=== PATIENT | female | born 1935 | race Caucasian/White ===

== ENCOUNTER 2017-11-24 11:07 | Inpatient (IN) | payer OTHER ==
[~2017-11-24] VITALS: Ht 154.9 cm; Wt 76.4 kg
[2017-11-24 11:56] LABS: BASOPHIL (%) 0.5 % (0-1); EOSINOPHIL (%) 2.5 % (0-5); EOSINOPHIL COUNT 0.1 K/uL (0-0.3); HEMATOCRIT 25.6 % (36.0-46.0); HEMOGLOBIN 7.9 G/DL (11.9-15.5); IMMATURE GRANULOCYTE (%) 1.6 % (0.0-0.7); LYMPHOCYTE (%) 28.3 % (15-42); LYMPHOCYTE COUNT 1.6 K/uL (1.0-2.8); MCH 30.4 PG (29.0-34.0); MCHC 30.9 G/DL (30.0-36.0); MCV 98.5 FL (83-99); MONOCYTE (%) 16.3 % (3-12); MONOCYTE COUNT 0.9 K/uL (0-0.8); NEUTROPHIL (%) 50.8 % (45-76); NEUTROPHIL COUNT 2.8 K/uL (1.8-6.4); PLATELET COUNT 301 K/uL (156-360); RBC DIS.WIDTH-SD 53.8 % (39-53); WHITE BLOOD COUNT 5.6 K/uL (4.1-10.2)
[2017-11-24 12:01] LABS: INTER. NORMALIZED RATIO 2.7
[2017-11-24 12:04] LABS: PTT 39.6 SEC (25-37)
[2017-11-24 12:05] LABS: ALBUMIN 2.8 g/dL (3.2-4.8); CHLORIDE 103 mEq/L (99-109); POTASSIUM 3.7 mEq/L (3.7-5.4); SODIUM 144 mEq/L (136-147)
[2017-11-24 12:06] LABS: MAGNESIUM 1.8 mg/dL (1.3-2.7)
[2017-11-24 12:08] LABS: GLUCOSE 124 mg/dL (70-99); TOTAL PROTEIN 5.9 g/dL (6.4-8.3)
[2017-11-24 12:10] LABS: TOTAL BILIRUBIN 0.8 mg/dL (0.0-1.0)
[2017-11-24 12:11] LABS: ALKALINE PHOSPHATASE 81 IU/L (3-129); CREATININE 1.2 mg/dL (0.6-1.3); GFR ESTIMATE (CALCULATED) 46 mL/min/
[2017-11-24 12:12] LABS: UREA NITROGEN (BUN) 18 mg/dL (9-23)
[2017-11-24 12:13] LABS: AST (GOT) 14 IU/L (2-34)
[2017-11-24 12:14] LABS: ALT (GPT) 9 IU/L (3-49)
[2017-11-24 12:17] LABS: TROP-I INTERPRETATION NEGATIVE; TROPONIN-I 0.06 ng/mL (0.0-0.30)
[2017-11-24 13:11] LABS: APPEARANCE CLEAR ((CLEAR)); BILIRUBIN NEGATIVE; BLOOD SMALL; COLOR STRAW ((YELLOW)); GLUCOSE (STRIP) NEGATIVE; KETONES NEGATIVE; LEUKOCYTES NEGATIVE; NITRITE NEGATIVE; PROTEIN (STRIP) NEGATIVE; SPECIFIC GRAVITY 1.008 (1.000-1.030); UROBILINOGEN 0.2 MG/DL (0.2-1.0)
[2017-11-24 13:13] LABS: BACTERIA RARE /HPF; EPITHELIAL CELLS RARE /HPF; MUCUS TRACE /LPF; RED BLOOD CELLS 0-5 /HPF (0-5); UCUL ADDED? NO; WHITE BLOOD CELLS 0-5 /HPF (0-5)
[2017-11-24 13:28] LABS: THYROTROPIN (TSH) 1.5 MIU/L (0.4-5.5)
[2017-11-24] MEDS ORDERED: BUMEX1 MG PO (15:51)
[2017-11-24] MEDS ORDERED: CALCITRIOL0.25 MCG PO (15:51)
[2017-11-24] MEDS ORDERED: METOPROLOL SUCC25 MG PO (15:51)
[2017-11-24] MEDS ORDERED: ZOLOFT50 MG PO (15:51)
[2017-11-24] MEDS ORDERED: WARFARIN SODIUM5 MG PO (15:52)
[2017-11-24] MEDS ORDERED: PRAVASTATIN SOD10 MG PO (15:57)
[2017-11-24 17:17] LABS: TROP-I INTERPRETATION NEGATIVE; TROPONIN-I 0.06 ng/mL (0.0-0.30)
[2017-11-24 17:22] VITALS: BP 136/94
[2017-11-24 20:00] VITALS: BP 141/75
[2017-11-24 23:38] VITALS: BP 122/67
[2017-11-25 03:49] VITALS: BP 116/55
[2017-11-25 06:18] LABS: HEMATOCRIT 27.7 % (36.0-46.0); HEMOGLOBIN 8.4 G/DL (11.9-15.5); MCH 29.9 PG (29.0-34.0); MCHC 30.3 G/DL (30.0-36.0); MCV 98.6 FL (83-99); PLATELET COUNT 312 K/uL (156-360); RBC DIS.WIDTH-SD 54.4 % (39-53); RED BLOOD COUNT 2.81 M/uL (3.80-5.20); WHITE BLOOD COUNT 4.1 K/uL (4.1-10.2)
[2017-11-25 06:34] LABS: INTER. NORMALIZED RATIO 3.1
[2017-11-25 06:48] LABS: CHLORIDE 91 MEQ/L (99-109); CREATININE 1.6 MG/DL (0.6-1.3); GFR ESTIMATE (CALCULATED) 33 mL/min/; POTASSIUM 3.4 MEQ/L (3.7-5.4); UREA NITROGEN (BUN) 23 mg/dL (9-23)
[2017-11-25 06:50] LABS: GLUCOSE 247 mg/dL (70-99)
[2017-11-25 06:51] LABS: SODIUM 134 MEQ/L (136-147)
[2017-11-25 06:54] LABS: TROP-I INTERPRETATION NEGATIVE; TROPONIN-I 0.07 ng/mL (0.0-0.30)
[2017-11-25 07:14] VITALS: BP 126/86
[2017-11-25 11:25] VITALS: BP 151/69
[2017-11-25 12:17] LABS: MAGNESIUM 2.2 mg/dl (1.3-2.7)
[2017-11-25 15:21] VITALS: BP 143/67
[2017-11-25 20:00] VITALS: BP 135/76
[2017-11-25 23:58] VITALS: BP 131/78
[2017-11-26 03:57] VITALS: BP 146/71
[2017-11-26 06:09] LABS: BASOPHIL (%) 0.1 % (0-1); EOSINOPHIL (%) 0 % (0-5); HEMOGLOBIN 7.9 G/DL (11.9-15.5); IMM.RETIC FRACTION 29.1 % (3-19); IMMATURE GRANULOCYTE (%) 0.8 % (0.0-0.7); LYMPHOCYTE (%) 15.8 % (15-42); LYMPHOCYTE COUNT 1.5 K/uL (1.0-2.8); MCH 29.6 PG (29.0-34.0); MCHC 30.4 G/DL (30.0-36.0); MCV 97.4 FL (83-99); MONOCYTE (%) 5.1 % (3-12); MONOCYTE COUNT 0.5 K/uL (0-0.8); NEUTROPHIL (%) 78.2 % (45-76); NEUTROPHIL COUNT 7.2 K/uL (1.8-6.4); PLATELET COUNT 328 K/uL (156-360); RBC DIS.WIDTH-SD 53.2 % (39-53); RED BLOOD COUNT 2.67 M/uL (3.80-5.20); RETIC HGB EQUIVALENT 28.5 (28-36); RETICULOCYTE COUNT 4.4 % (0.5-1.8); WHITE BLOOD COUNT 9.2 K/uL (4.1-10.2)
[2017-11-26 07:22] VITALS: BP 170/74
[2017-11-26 08:23] LABS: ALBUMIN 2.9 G/DL (3.2-4.8); ALKALINE PHOSPHATASE 67 IU/L (3-129); ALT (GPT) 8 IU/L (3-49); AST (GOT) 11 IU/L (2-34); CHLORIDE 98 MEQ/L (99-109); CREATININE 1.7 MG/DL (0.6-1.3); FERRITIN 218 NG/ML (10-291); GFR ESTIMATE (CALCULATED) 31 mL/min/; GLUCOSE 189 mg/dL (70-99); IRON 51 MCG/DL (35-150); TOTAL BILIRUBIN 0.6 MG/DL (0.0-1.0); TOTAL PROTEIN 5.7 G/DL (6.4-8.3); TRANSFERRIN (TIBC) 197.6 mg/dL (215-380); TRANSFERRIN SATUR. 26 % (20-55)
[2017-11-26 08:27] LABS: POTASSIUM 4.6 MEQ/L (3.7-5.4); SODIUM 144 MEQ/L (136-147); UREA NITROGEN (BUN) 35 mg/dL (9-23)
[2017-11-26 08:47] LABS: FOLIC ACID (FOLATE) 9.2 NG/ML (5.0-22.0)
[2017-11-26 11:02] VITALS: BP 129/60
[2017-11-26 15:07] VITALS: BP 132/60
[2017-11-26 19:20] VITALS: BP 133/62
[2017-11-27] VITALS (8 sets, daily range): BP systolic 131–174; BP diastolic 67–97
[2017-11-27 06:27] LABS: BASOPHIL (%) 0.1 % (0-1); EOSINOPHIL (%) 0 % (0-5); HEMATOCRIT 26.6 % (36.0-46.0); HEMOGLOBIN 8.2 G/DL (11.9-15.5); IMMATURE GRANULOCYTE (%) 1.4 % (0.0-0.7); INTER. NORMALIZED RATIO 3.9; LYMPHOCYTE (%) 14.3 % (15-42); LYMPHOCYTE COUNT 1.4 K/uL (1.0-2.8); MCH 29.6 PG (29.0-34.0); MCHC 30.8 G/DL (30.0-36.0); MONOCYTE COUNT 0.5 K/uL (0-0.8); NEUTROPHIL (%) 79.2 % (45-76); NEUTROPHIL COUNT 7.6 K/uL (1.8-6.4); NRBC (%) 0.2 /100 WBC (0-0); PLATELET COUNT 344 K/uL (156-360); RBC DIS.WIDTH-SD 52.6 % (39-53); RED BLOOD COUNT 2.77 M/uL (3.80-5.20); WHITE BLOOD COUNT 9.6 K/uL (4.1-10.2)
[2017-11-27 06:49] LABS: ALBUMIN 3.2 G/DL (3.2-4.8); ALKALINE PHOSPHATASE 71 IU/L (3-129); ALT (GPT) 14 IU/L (3-49); CHLORIDE 96 MEQ/L (99-109); CREATININE 1.8 MG/DL (0.6-1.3); GFR ESTIMATE (CALCULATED) 29 mL/min/; GLUCOSE 178 mg/dL (70-99); SODIUM 142 MEQ/L (136-147); TOTAL BILIRUBIN 0.6 MG/DL (0.0-1.0); TOTAL PROTEIN 5.8 G/DL (6.4-8.3); UREA NITROGEN (BUN) 50 mg/dL (9-23)
[2017-11-27 06:50] LABS: AST (GOT) 17 IU/L (2-34)
[2017-11-28] VITALS: BP 114/62
[2017-11-28 04:00] VITALS: BP 144/70
[2017-11-28 06:27] LABS: BASOPHIL (%) 0.1 % (0-1); EOSINOPHIL (%) 0 % (0-5); HEMATOCRIT 24.9 % (36.0-46.0); HEMOGLOBIN 7.6 G/DL (11.9-15.5); LYMPHOCYTE (%) 11.9 % (15-42); MCH 29.2 PG (29.0-34.0); MCHC 30.5 G/DL (30.0-36.0); MCV 95.8 FL (83-99); MONOCYTE COUNT 0.4 K/uL (0-0.8); PLATELET COUNT 305 K/uL (156-360); RBC DIS.WIDTH-SD 52.5 % (39-53); WHITE BLOOD COUNT 8.7 K/uL (4.1-10.2)
[2017-11-28 06:33] LABS: INTER. NORMALIZED RATIO 3.3
[2017-11-28 06:57] LABS: ALBUMIN 2.7 G/DL (3.2-4.8); ALKALINE PHOSPHATASE 62 IU/L (3-129); ALT (GPT) 21 IU/L (3-49); AST (GOT) 24 IU/L (2-34); CHLORIDE 98 MEQ/L (99-109); CREATININE 1.8 MG/DL (0.6-1.3); GFR ESTIMATE (CALCULATED) 29 mL/min/; GLUCOSE 168 mg/dL (70-99); POTASSIUM 4.7 MEQ/L (3.7-5.4); SODIUM 141 MEQ/L (136-147); TOTAL BILIRUBIN 0.6 MG/DL (0.0-1.0); TOTAL PROTEIN 5.4 G/DL (6.4-8.3); UREA NITROGEN (BUN) 50 mg/dL (9-23)
[2017-11-28 07:09] VITALS: BP 158/88
[2017-11-28 11:11] VITALS: BP 142/70
[2017-11-28 16:23] VITALS: BP 149/68
[2017-11-28 19:32] VITALS: BP 132/61
[2017-11-29] VITALS (7 sets, daily range): BP systolic 115–147; BP diastolic 59–74
[2017-11-29 07:02] LABS: HEMATOCRIT 30.1 % (36.0-46.0); HEMOGLOBIN 9.3 G/DL (11.9-15.5); MCHC 30.9 G/DL (30.0-36.0); MCV 97.1 FL (83-99); PLATELET COUNT 353 K/uL (156-360); RBC DIS.WIDTH-CV 15.4 % (11.8-14.6); RBC DIS.WIDTH-SD 54.4 % (39-53)
[2017-11-29 07:16] LABS: INTER. NORMALIZED RATIO 2.3
[2017-11-29 07:30] LABS: ALBUMIN 3.2 G/DL (3.2-4.8); ALKALINE PHOSPHATASE 90 IU/L (3-129); ALT (GPT) 32 IU/L (3-49); AST (GOT) 29 IU/L (2-34); CHLORIDE 99 MEQ/L (99-109); CREATININE 1.6 MG/DL (0.6-1.3); GFR ESTIMATE (CALCULATED) 33 mL/min/; GLUCOSE 107 mg/dL (70-99); POTASSIUM 4.3 MEQ/L (3.7-5.4); SODIUM 142 MEQ/L (136-147); TOTAL BILIRUBIN 0.7 MG/DL (0.0-1.0); TOTAL PROTEIN 5.8 G/DL (6.4-8.3); UREA NITROGEN (BUN) 58 mg/dL (9-23)
[2017-11-29 07:39] LABS: ABS NEUTROPHIL COUNT 6.4; ATYPICAL LYMPHOCYTE 0.9 %; BASOPH.STIPPLING 1+; EOSINOPHIL ABS CT 0; MONOCYTES 6.9 % (0-9.0); MYELOCYTES 1.7 %; NUCLEATED RBC'S 0.9; PLAT.SUFFICIENCY ADEQUATE; POLYCHROMASIA 1+; SEG.NEUTROPHILS 63.5 % (46.0-76.0); SPHEROCYTES 1+
[2017-11-30 04:00] VITALS: BP 118/59
[2017-11-30 06:18] LABS: HEMOGLOBIN 8.2 G/DL (11.9-15.5); MCH 29.3 PG (29.0-34.0); MCHC 30.4 G/DL (30.0-36.0); MCV 96.4 FL (83-99); NRBC (%) 0.3 /100 WBC (0-0); PLATELET COUNT 312 K/uL (156-360); RBC DIS.WIDTH-CV 15.1 % (11.8-14.6); RBC DIS.WIDTH-SD 53.4 % (39-53); WHITE BLOOD COUNT 9.5 K/uL (4.1-10.2)
[2017-11-30 06:25] LABS: INTER. NORMALIZED RATIO 1.8
[2017-11-30 07:20] VITALS: BP 146/73
[2017-11-30 11:03] VITALS: BP 116/58
[2017-11-30 14:59] VITALS: BP 132/61
[2017-11-30 19:28] VITALS: BP 121/59
[2017-12-01 00:03] VITALS: BP 130/63
[2017-12-01 03:50] VITALS: BP 138/66
[2017-12-01 06:25] LABS: MCH 30.1 PG (29.0-34.0); MCHC 30.8 G/DL (30.0-36.0); MCV 97.7 FL (83-99); NRBC (%) 0.2 /100 WBC (0-0); PLATELET COUNT 269 K/uL (156-360); RBC DIS.WIDTH-CV 15.4 % (11.8-14.6); RBC DIS.WIDTH-SD 53.9 % (39-53); RED BLOOD COUNT 2.66 M/uL (3.80-5.20); WHITE BLOOD COUNT 9.6 K/uL (4.1-10.2)
[2017-12-01 06:41] LABS: INTER. NORMALIZED RATIO 1.5
[2017-12-01 06:59] LABS: ALBUMIN 2.7 G/DL (3.2-4.8); ALKALINE PHOSPHATASE 69 IU/L (3-129); ALT (GPT) 20 IU/L (3-49); CHLORIDE 105 MEQ/L (99-109); CREATININE 1.6 MG/DL (0.6-1.3); GFR ESTIMATE (CALCULATED) 33 mL/min/; GLUCOSE 124 mg/dL (70-99); POTASSIUM 4.8 MEQ/L (3.7-5.4); SODIUM 141 MEQ/L (136-147); TOTAL BILIRUBIN 0.7 MG/DL (0.0-1.0); UREA NITROGEN (BUN) 50 mg/dL (9-23)
[2017-12-01 07:00] LABS: AST (GOT) 15 IU/L (2-34); TOTAL PROTEIN 4.7 G/DL (6.4-8.3)
[2017-12-01 07:58] LABS: ABS NEUTROPHIL COUNT 6.1; ANISOCYTOSIS 1+; EOSINOPHIL ABS CT 0.1; HYPOCHROMASIA 2+; MACROCYTES 1+; PLAT.SUFFICIENCY ADEQUATE
[2017-12-01 08:05] VITALS: BP 131/63
[2017-12-01 12:13] VITALS: BP 125/69
[2017-12-01 15:19] VITALS: BP 135/64
[2017-12-01 19:55] VITALS: BP 127/60
[2017-12-02] VITALS: BP 129/57
[2017-12-02 03:55] VITALS: BP 124/58
[2017-12-02 07:23] VITALS: BP 128/57
[2017-12-02 19:56] VITALS: BP 121/59
[2017-12-03 00:11] VITALS: BP 126/58
[2017-12-03 07:04] LABS: HEMATOCRIT 28.9 % (36.0-46.0); MCH 30.6 PG (29.0-34.0); MCHC 31.1 G/DL (30.0-36.0); MCV 98.3 FL (83-99); PLATELET COUNT 252 K/uL (156-360); RBC DIS.WIDTH-CV 15.6 % (11.8-14.6); RBC DIS.WIDTH-SD 55.8 % (39-53); RED BLOOD COUNT 2.94 M/uL (3.80-5.20)
[2017-12-03 07:10] LABS: INTER. NORMALIZED RATIO 1.1
[2017-12-03 07:12] LABS: PTT 27.3 SEC (25-37)
[2017-12-03 07:42] LABS: CHLORIDE 105 MEQ/L (99-109); CREATININE 1.4 MG/DL (0.6-1.3); GFR ESTIMATE (CALCULATED) 38 mL/min/; PHOSPHORUS 3.8 mg/dL (2.5-4.9); POTASSIUM 4.5 MEQ/L (3.7-5.4); SODIUM 140 MEQ/L (136-147)
[2017-12-03 07:45] VITALS: BP 109/63
[2017-12-03 08:20] LABS: ALBUMIN 3.2 G/DL (3.2-4.8); GLUCOSE 106 mg/dL (70-99); UREA NITROGEN (BUN) 35 mg/dL (9-23)
[2017-12-03 11:11] LABS: BASE EXCESS 3.4 mEq/L (-3 to +3); COMMENTS - BLOOD GASES A+C+; METHEMOGLOBIN 1.2 % (0-1.5); PCO2 49 mm Hg (35-45); PO2 95 mm Hg (80-100); SITE RR; pH 7.38 (7.35-7.45)
[2017-12-03 11:12] LABS: DEVICE NC; O2 FLOW 2 L/MIN; TOTAL RESP RATE 13 resp/min
[2017-12-03 15:12] VITALS: BP 122/60
[2017-12-04 00:20] VITALS: BP 109/64
[2017-12-04 06:33] VITALS: BP 124/57
[2017-12-04 06:36] LABS: HEMATOCRIT 25.7 % (36.0-46.0); HEMOGLOBIN 7.8 G/DL (11.9-15.5); MCHC 30.4 G/DL (30.0-36.0); MCV 98.8 FL (83-99); PLATELET COUNT 220 K/uL (156-360); RBC DIS.WIDTH-CV 15.4 % (11.8-14.6); RBC DIS.WIDTH-SD 55.6 % (39-53)
[2017-12-04 10:56] LABS: CHLORIDE 105 MEQ/L (99-109); CREATININE 1.4 MG/DL (0.6-1.3); GFR ESTIMATE (CALCULATED) 38 mL/min/; POTASSIUM 4.7 MEQ/L (3.7-5.4); SODIUM 140 MEQ/L (136-147); UREA NITROGEN (BUN) 36 mg/dL (9-23)
[2017-12-04 10:57] LABS: GLUCOSE 211 mg/dL (70-99)
[2017-12-04 17:33] VITALS: BP 129/63
[2017-12-04 21:15] VITALS: BP 149/69
[2017-12-04 23:43] VITALS: BP 143/67
[2017-12-05 06:23] LABS: INTER. NORMALIZED RATIO 1.1
[2017-12-05 06:28] LABS: BASOPHIL (%) 0.1 % (0-1); EOSINOPHIL (%) 0.2 % (0-5); HEMATOCRIT 24.3 % (36.0-46.0); HEMOGLOBIN 7.4 G/DL (11.9-15.5); IMMATURE GRANULOCYTE (%) 1.6 % (0.0-0.7); LYMPHOCYTE (%) 23.1 % (15-42); LYMPHOCYTE COUNT 2.3 K/uL (1.0-2.8); MCH 29.8 PG (29.0-34.0); MCHC 30.5 G/DL (30.0-36.0); MONOCYTE (%) 10.5 % (3-12); NEUTROPHIL (%) 64.5 % (45-76); NEUTROPHIL COUNT 6.4 K/uL (1.8-6.4); PLATELET COUNT 200 K/uL (156-360); RBC DIS.WIDTH-CV 15.5 % (11.8-14.6); RBC DIS.WIDTH-SD 55.4 % (39-53); RED BLOOD COUNT 2.48 M/uL (3.80-5.20); WHITE BLOOD COUNT 9.9 K/uL (4.1-10.2)
[2017-12-05 07:00] LABS: CHLORIDE 106 MEQ/L (99-109); CREATININE 1.6 MG/DL (0.6-1.3); GFR ESTIMATE (CALCULATED) 33 mL/min/; POTASSIUM 4.6 MEQ/L (3.7-5.4); SODIUM 143 MEQ/L (136-147); UREA NITROGEN (BUN) 42 mg/dL (9-23)
[2017-12-05 07:08] LABS: GLUCOSE 119 mg/dL (70-99)
[2017-12-05 08:03] VITALS: BP 130/63
[2017-12-05] MEDS ORDERED: METOPROLOL SUCC25 MG PO (13:55)
[2017-12-05] MEDS ORDERED: LOSARTAN POTASS50 MG PO (13:55)
[2017-12-05] MEDS ORDERED: ANUCORT-HC25 MG PR (13:57)
[2017-12-05] MEDS ORDERED: DULERA 100 MCG/13 GM IH (13:58)
[2017-12-05] MEDS ORDERED: VENTOLIN HFA18 GM IH (13:58)
[2017-12-05] MEDS ORDERED: PREDNISONE5 MG PO (13:59)
[2017-12-05] MEDS ORDERED: FEROSUL325 MG PO (14:02)
[2017-12-05] MEDS ORDERED: DAILY VALUE1 EACH PO (14:02)
== END 2017-12-05 15:00 | disposition home health service (06) | DRG 190 ==
LOC: EME 11:07 → EDOF 13:50 → 5SOUTH 13:50 → ENRESERV 13:59 → 5SOUTH 17:03 → ENPENDDIS 12-05 14:13 → 5SOUTH 12-05 15:00
PROVIDERS: Emergency Medicine; Hospitalist; Internal Medicine; Internal Medicine Gastroenterology; Internal Medicine Pulmonary Disease; Physician Assistant Medical
DX: J44.1 Chronic obstructive pulmonary disease with (acute) exacerbation (principal); J18.9 Pneumonia, unspecified organism; J96.21 Acute and chronic respiratory failure with hypoxia; I50.32 Chronic diastolic (congestive) heart failure; N17.9 Acute kidney failure, unspecified; I48.92 Unspecified atrial flutter; K62.5 Hemorrhage of anus and rectum; I13.0 Hypertensive heart and chronic kidney disease with heart failure and stage 1 through stage 4 chronic kidney disease, or unspecified chronic kidney disease; E66.2 Morbid (severe) obesity with alveolar hypoventilation; N18.3 Chronic kidney disease, stage 3 (moderate); E53.8 Deficiency of other specified B group vitamins; E78.5 Hyperlipidemia, unspecified; I48.0 Paroxysmal atrial fibrillation; I35.0 Nonrheumatic aortic (valve) stenosis; J44.0 Chronic obstructive pulmonary disease with (acute) lower respiratory infection; E66.9 Obesity, unspecified; F41.9 Anxiety disorder, unspecified; J84.10 Pulmonary fibrosis, unspecified; R04.0 Epistaxis; K64.4 Residual hemorrhoidal skin tags; K64.8 Other hemorrhoids; I25.10 Atherosclerotic heart disease of native coronary artery without angina pectoris; I27.20 Pulmonary hypertension, unspecified; D12.0 Benign neoplasm of cecum; D12.2 Benign neoplasm of ascending colon; D12.3 Benign neoplasm of transverse colon; I34.0 Nonrheumatic mitral (valve) insufficiency; Z79.01 Long term (current) use of anticoagulants; Z86.010 Personal history of colon polyps; Z86.711 Personal history of pulmonary embolism; Z99.81 Dependence on supplemental oxygen; Z90.710 Acquired absence of both cervix and uterus; Z87.01 Personal history of pneumonia (recurrent); Z79.51 Long term (current) use of inhaled steroids; Z68.31 Body mass index [BMI] 31.0-31.9, adult; Z91.013 Allergy to seafood; Z80.0 Family history of malignant neoplasm of digestive organs
CPT/HCPCS: 36600; 71045; 71046; 71250; 74176; 80048; 80053; 80069; 81003; 82272; 82607; 82728; 82746; 82803; 83540; 83735; 83880; 84145 90; 84443; 84466; 84484; 85025; 85027; 85046; 85610; 85730; 86850; 86900; 86901; 86920; 87449; 87641; 88305; 93005; 93306; 94640; 94640 76; 94799; 97530 GO; 97530 GP; 99202; 99281; 99285; J0330; J0692; J1940; J2405; J2920; J2930; J7512